=== PATIENT | female | born 1960 | race African-American/Black ===

== ENCOUNTER 2017-04-17 00:14 | Emergency (ER) | payer MEDICARE, OTHER ==
--- NOTE | ~2017-04-17 | CR58 ---
[facility] A Service of [facility] & [facility] / [facility] RADIOLOGY TEXT RESULTS PATIENT: HEMA POSADA LOCATION: [facility] : 60 UNIT #: [id number] AGE: [address]: Andre Clarke MD SEX: F ORDER DR: [id number] [facility] [address] [place], [place] [address] [id number] MR#: [id number] Acc #: [id number] NAME: HEMA POSAAD : 1960 SEX: F STUDY DATE/TIME: 04/17/2017 UNIT: [facility] ROOM: STUDY DESCRIPTION: CR Cervical Spine 2 or 3 Views Attending Physician: Andre Clarke M.D. Ordering Physician: Andre Clarke M.D. Primary Care Physician: Pedro Doss M.D. MEDICAL IMAGING REPORT This report is preliminary unless electronic signature is present EXAM Cervical spine 04/17 02:49 INDICATIONS Neck pain chronically for years but worsened over the last few weeks. No trauma. FINDINGS 5 views of the cervical spine were obtained. No comparison. No fracture is identified. There is degenerative disc disease most severe at C5-6 but also seen at C4-5. There is mild retrolisthesis of C5 on C6. Multilevel facet arthropathy is present. Prevertebral soft tissues are normal. IMPRESSION Multilevel degenerative disease and facet arthropathy. There is mild retrolisthesis at 5-6. Disc disease is most severe at 5-6 as well. Symptoms could be further evaluated with outpatient MRI if clinically indicated. Dictated by... Todd Askew Jr., M.D. THIS IS AN ELECTRONICALLY VERIFIED REPORT Todd Askew Jr., M.D. at 04/17/2017 9:25 PM SATURNINO/loren TD: 04/17/2017 10:57 JOB #: [id number] MEDICAL IMAGING REPORT Page 1 of 1 COPY
[~2017-04-17 00:14] MED LIST: ACETAMINOPHEN PR; ASPIRIN81 MG PO; BRILINTA90 MG PO; CARBATROL200 MG PO; CARTIA XT240 M1 PO; COLACE PO; COMBIVENT MININEB INH; COMBIVENT U/D3 M2 INH; DIAZEPAM PO; HYDRALAZINE HCL25 MG PO; IMDUR-ER60 M1 PO; LASIX PO; LATUDA40 MG PO; LEVAQUIN750 MG PO; LIPITOR80 MG PO; METOPROLOL TAR25 MG PO; MIRALAX17 GM PO; NITROSTAT0.4 MG SL; NORVASC PO; OMEPRAZOLE40 M1 PO; PLETAL100 M1 PO; PRAVASTATIN SOD20 MG PO; RISPERIDONE PO; THORAZINE25 MG PO
== END 2017-04-17 07:00 | disposition home or self-care (01) ==
LOC: CED 00:14
DX: M54.12 Radiculopathy, cervical region (principal); F31.9 Bipolar disorder, unspecified; J44.9 Chronic obstructive pulmonary disease, unspecified; F17.200 Nicotine dependence, unspecified, uncomplicated; Z88.0 Allergy status to penicillin
CPT/HCPCS: 72040; 96372; 99284; J1885